=== PATIENT | male | born 1955 | race Caucasian/White ===

== ENCOUNTER → 2023-07-03 | Outpatient (CLI) | payer OTHER ==
[2023-07-03 16:33] LABS: Hematocrit 30.9 % (37.0-53.0); Hemoglobin 10.1 g/dL (13.5-17.5); Mean Corpuscular HGB 28.4 pg (26.0-34.0); Mean Corpuscular HGB Conc 32.7 g/dL (31.5-36.5); Mean Corpuscular Volume 87 fL (80-100); Platelet Count 318 K/mm3 (150-400); RDW Coefficient Variation 13.5 % (11.7-14.2); RDW Standard Deviation 42.2 fL (35.1-46.3); Red Blood Cell Count 3.56 M/mm3 (4.30-5.90); White Blood Cell Count 6.24 K/mm3 (4.00-11.30)
[2023-07-03 16:43] LABS: Bun/Creatinine Ratio 22.9 (12.0-20.0); Calcium, Blood 9.4 mg/dL (8.5-10.1); Creatinine, Blood 0.7 mg/dL (0.60-1.20)
[2023-07-03 16:53] LABS: BASOPHILS ABSOLUTE MAN 0.06 K/mm3 (0.00-0.23); BASOPHILS PERCENT MAN 1 % (0-2); EOSINOPHILS ABSOLUTE MAN 0.12 K/mm3 (0.00-0.68); EOSINOPHILS PERCENT MAN 2 % (0-6); LYMPHOCYTES ABSOLUTE MAN 0.49 K/mm3 (0.84-5.20); LYMPHOCYTES PERCENT MAN 8 % (21-46); MONOCYTES PERCENT MAN 0 % (4-13); NEUTROPHILS ABSOLUTE MAN 5.55 K/mm3 (1.96-9.15); SEG NEUTROPHILS PERCENT MAN 89 % (41-73); TOTAL CELLS COUNTED 100
== END | disposition home or self-care (01) ==
LOC: LAB SHORT 14:35 → LAB 14:35
PROVIDERS: Family Medicine
DX: I80.9 Phlebitis and thrombophlebitis of unspecified site (principal)
CPT/HCPCS: 80048; 85025

== ENCOUNTER 2023-07-10 06:47 | Day surgery (SDC) | payer OTHER ==
[~2023-07-10] VITALS: Ht 177.8 cm; Wt 77.0 kg
[2023-07-10] VITALS (11 sets, daily range): BP systolic 121–152; BP diastolic 70–85
[~2023-07-10 06:47] MED LIST: Acetaminophen325 M1 PO; Doxycycline Mo100 M1; FENTANYL1 EA11 TOP; GABA400 PO; Keflex250 MG; LIDO700A20 TOP; METO10; OMEP20ER PO; OXYC10ER PO; ROPI.25 PO; [UNRECOGNIZED DRUG - OTHER] PO
[2023-07-10] MEDS ORDERED: BACLOFEN5 M5 PO (08:00)
--- NOTE | 2023-07-10 08:06 | NUR ---
History, Chart, Medications and Allergies reviewed before start of procedure. Pre-Op teaching done. Pt verbalizes understanding. Patient confirms NPO status and agrees with scheduled surgery. Patient reports completing Chlorhexadine shower X2 prior to admission to hospital. Surgical site prepped with 2% Chlorhexidine cloth wipe. Lungs clear T/O to Auscultation. Patient States Post-Procedure ride home has been arranged.
--- NOTE | 2023-07-10 10:32 | NUR ---
REPORT FROM KALAPNA DOZIER FROM PACU. PT AXOX4, ABLE TO REPOSITION SELF. REPORTS NO NAUSEA, 2/10 PAIN. REQUESTS PO FLUIDS AND FOOD. PT HAS TWO INCISION SITES COVERED WITH GAUZE AND CLEAR OPSITE THAT ARE CDI.
--- NOTE | 2023-07-10 10:33 | NUR ---
Patient up to Ambulate independently. Gait steady. Discharge instructions reviewed with patient. Patient verbalizes understanding. Copy given to patient to take home. Dressing to procedure site clean, dry, intact with no visible drainage, swelling, erythema or bruising noted. Patient States Post-Procedure ride home has been arranged. Discharged via wheelchair to private car for ride home. ALL BELONGINGS RETURNED TO PATIENT TO INCLUDE TWO HEARING AIDS AND ONE WALKING GONZALEZ.
== END 2023-07-10 23:10 | disposition home or self-care (01) ==
LOC: ORSCMMR 06:47 → ORD 08:00 → ORSCMMR 08:00
PROVIDERS: Surgery
PROC: 0JH63WZ Insertion of Totally Implantable Vascular Access Device into Chest Subcutaneous Tissue and Fascia, Percutaneous Approach (ICD-10-PCS; principal; 2023-07-10 08:00)
PROC: 05HM33Z Insertion of Infusion Device into Right Internal Jugular Vein, Percutaneous Approach (ICD-10-PCS; principal; 2023-07-10 08:00)
PROC: B543ZZA Ultrasonography of Right Jugular Veins, Guidance (ICD-10-PCS; principal; 2023-07-10 08:00)
DX: C25.1 Malignant neoplasm of body of pancreas (principal); R73.03 Prediabetes; Z79.899 Other long term (current) drug therapy
CPT/HCPCS: 77001; 82947; C1788; J0690; J1100; J1642; J2405; J2704; J3010; J7120